=== PATIENT | male | born 1955 | race Hispanic/Latino ===

== ENCOUNTER 2022-06-26 16:33 | Emergency (ER) | payer OTHER ==
[~2022-06-26] VITALS: Ht 175.3 cm; Wt 88.0 kg
[2022-06-26 17:39] VITALS: BP 161/99
== END 2022-06-26 20:18 | disposition home or self-care (01) ==
LOC: EDH 16:33
DX: S61.011A Laceration without foreign body of right thumb without damage to nail, initial encounter (principal); E78.00 Pure hypercholesterolemia, unspecified; I10 Essential (primary) hypertension; W45.8XXA Other foreign body or object entering through skin, initial encounter; Y93.89 Activity, other specified; Y92.89 Other specified places as the place of occurrence of the external cause; Y99.8 Other external cause status
CPT/HCPCS: 73130